=== PATIENT | male | born 2000 | race Caucasian/White ===

== ENCOUNTER 2022-09-29 15:22 | Emergency (ER) | payer SELFPAY ==
[~2022-09-29] VITALS: Ht 175.3 cm; Wt 74.0 kg
[2022-09-29 15:25] VITALS: BP 125/82
[2022-09-29] MEDS ORDERED: IBUPROFEN 600MG TABLET PO STA (16:55)
[2022-09-29] MEDS ORDERED: TETANUS, DIPHTHERIA, PERTUSSIS VAC/PF 0.5ML (>10YR OLD) IM ONE (17:00)
[2022-09-29] MEDS ORDERED: LIDOCAINE HCL/PF 1% 10 MG/ML 5ML VIAL INFIL ONE (17:00)
[2022-09-29] MEDS ORDERED: BACITRACIN ZINC OINT UDPKT TOP ONE (17:00)
[2022-09-29] MEDS ORDERED: CEPH500C2 PO (17:48)
[2022-09-29] MEDS ORDERED: IBUP-2029 PO (17:48)
== END 2022-09-29 18:54 | disposition home or self-care (01) ==
LOC: ER 15:46
DX: S61.210A Laceration without foreign body of right index finger without damage to nail, initial encounter (principal); S60.511A Abrasion of right hand, initial encounter; W31.2XXA Contact with powered woodworking and forming machines, initial encounter; Y93.89 Activity, other specified; Y92.89 Other specified places as the place of occurrence of the external cause; Y99.8 Other external cause status
CPT/HCPCS: 12001; 73130; 90471; 90715; 99283; J3490